=== PATIENT | male | born 1960 | race African-American/Black ===

== ENCOUNTER 2017-10-29 10:37 | Emergency (ER) | payer OTHER, MEDICAID ==
[~2017-10-29] VITALS: Ht 175.3 cm; Wt 75.0 kg
[2017-10-29 16:48] LABS: BASOPHILS % 0.7 % (0.0-2.0); EOSINOPHILS % 1.8 % (0.0-5.0); HEMOGLOBIN. 11.9 g/dL (14.0-18.0); LYMPHOCYTES % 15.6 % (20.0-50.0); MEAN CORPUSCULAR HEMOGLOBIN 30.9 pg (28.0-32.0); MEAN CORPUSCULAR VOLUME 90.7 fL (80.0-94.0); MONOCYTES % 12.1 % (2.0-8.0); NEUTROPHILS % 69.8 % (40.0-76.0); PLATELET 292 x1000/uL (130-400); RED BLOOD CELL COUNT 3.86 mill/uL (4.7-6.1)
[2017-10-29 16:52] LABS: CHLORIDE 102 mEq/L (98-107)
[2017-10-29 16:53] LABS: INR 1.1
[2017-10-29 16:58] VITALS: BP 131/94
[2017-10-29] MEDS: IBUPROFEN 600MG TABLET PO STA (16:58)
[2017-10-29 16:59] LABS: CARBON DIOXIDE 28 mEq/L (21-32)
[2017-10-29 17:35] LABS: CLARITY URINE CLEAR (CLEAR); COLOR URINE YELLOW (YELLOW); KETONES URINE NEGATIVE (NEGATIVE); LEUKOCYTE ESTERASE URINE NEGATIVE (NEGATIVE); NITRITE URINE NEGATIVE (NEGATIVE); OCCULT BLOOD URINE NEGATIVE (NEGATIVE); PROTEIN URINE NEGATIVE (NEGATIVE); SPECIFIC GRAVITY URINE 1.017 (1.005-1.030); UROBILINOGEN URINE 0.2 E.U./dL (0.2-1.0)
== END 2017-10-29 18:38 | disposition home or self-care (01) ==
LOC: ER 11:40
DX: J18.9 Pneumonia, unspecified organism (principal)
CPT/HCPCS: 36415; 71010; 80053; 81003; 83690; 85025; 85610; 99285

== ENCOUNTER 2018-12-20 15:54 | Emergency (ER) | payer OTHER, MEDICAID ==
[~2018-12-20] VITALS: Ht 175.3 cm; Wt 68.2 kg
[2018-12-20] MEDS ORDERED: KETOROLAC 60MG/2ML VIAL IM ONE (19:45)
[2018-12-20 21:12] VITALS: BP 138/85
== END 2018-12-20 21:13 | disposition home or self-care (01) ==
LOC: ER 16:50
DX: S46.091A Other injury of muscle(s) and tendon(s) of the rotator cuff of right shoulder, initial encounter (principal); F17.200 Nicotine dependence, unspecified, uncomplicated; W10.8XXA Fall (on) (from) other stairs and steps, initial encounter; Y93.89 Activity, other specified; Y92.89 Other specified places as the place of occurrence of the external cause; Y99.8 Other external cause status
CPT/HCPCS: 73030; 96372; 99283; J1885; A4565

== ENCOUNTER 2019-03-24 10:26 | Emergency (ER) | payer MEDICARE, MEDICAID ==
[~2019-03-24] VITALS: Ht 175.3 cm; Wt 72.0 kg
[2019-03-24] MEDS ORDERED: IBUPROFEN 600MG TABLET PO ONE (12:15)
[2019-03-24 12:16] VITALS: BP 138/79
== END 2019-03-24 14:34 | disposition home or self-care (01) ==
LOC: ER 10:26
DX: M25.561 Pain in right knee (principal); M71.21 Synovial cyst of popliteal space [Baker], right knee
CPT/HCPCS: 73562; 93971; 99284

== ENCOUNTER 2019-04-03 08:36 | Emergency (ER) | payer MEDICARE, MEDICAID ==
[~2019-04-03] VITALS: Ht 175.3 cm; Wt 72.0 kg
[2019-04-03] MEDS ORDERED: KETOROLAC 60MG/2ML VIAL IM STA (09:02)
[2019-04-03 10:45] VITALS: BP 145/82
== END 2019-04-03 10:58 | disposition home or self-care (01) ==
LOC: ER 08:59
DX: M25.561 Pain in right knee (principal); F17.210 Nicotine dependence, cigarettes, uncomplicated
CPT/HCPCS: 96372; 99283; J1885

== ENCOUNTER 2022-12-10 11:13 | Emergency (ER) | payer MEDICARE, MEDICAID ==
[~2022-12-10] VITALS: Ht 175.3 cm; Wt 69.0 kg
[2022-12-10] MEDS ORDERED: BACITRACIN ZINC OINT UDPKT TOP ONE (14:15)
[2022-12-10] MEDS ORDERED: DOXY-326 PO (14:23)
[2022-12-10] MEDS ORDERED: NAPR-681 PO (14:23)
[2022-12-10 15:10] VITALS: BP 125/76
== END 2022-12-10 15:13 | disposition home or self-care (01) ==
LOC: ER 11:13
DX: L03.011 Cellulitis of right finger (principal)
CPT/HCPCS: 10060; 73140; 99283